=== PATIENT | male | born 1985 | race Caucasian/White ===

== ENCOUNTER 2019-06-25 16:34 | Emergency (ER) | payer MEDICAID, OTHER ==
[~2019-06-25] VITALS: Ht 185.4 cm; Wt 99.8 kg
[2019-06-25 16:38] VITALS: BP 144/96
[2019-06-25] MEDS ORDERED: HYDROcodone-ACET 7.5/325MG TAB PO ONE (19:00)
== END 2019-06-25 19:20 | disposition home or self-care (01) ==
LOC: ER 16:34
DX: S01.81XD Laceration without foreign body of other part of head, subsequent encounter (principal); Z76.0 Encounter for issue of repeat prescription; X58.XXXD Exposure to other specified factors, subsequent encounter